=== PATIENT | male | born 1965 | race African-American/Black ===

== ENCOUNTER 2021-09-29 12:43 | Inpatient (IN) | payer OTHER, SELFPAY ==
[2021-09-29] MEDS ORDERED: Ondansetron ODT 4 MG TAB PO PRN (17:21)
[2021-09-29] MEDS ORDERED: HYDROcodone/Acetaminophen 5/325 mg Tablet PO PRN (17:21)
[2021-09-29] MEDS ORDERED: Morphine 4 MG/ML VIAL SLOW IVP PRN (17:45)
[2021-09-29] MEDS ORDERED: Acetaminophen 325 MG TAB PO PRN (17:45)
[2021-09-29] MEDS ORDERED: Ondansetron PF 4 MG/2 ML Vial IVP PRN (17:54)
[2021-09-29] MEDS ORDERED: Electrolyte Replacement Protocol 1 EACH FS SCH (18:15)
[2021-09-29 18:20] LABS: Magnesium 1.6 mg/dL (1.6-2.6)
[2021-09-29 18:23] LABS: INR-International Normal Ratio 1.1
[2021-09-29 18:40] LABS: Hep B Surf Ag Non-Reactive S/CO (NonReactive)
[2021-09-29 18:41] LABS: HBSAg Index 0.18 S/CO (0-0.99)
[2021-09-29 18:56] VITALS: BMI 31.2
[2021-09-29] MEDS ORDERED: hydrALAZINE 20 MG/ML VIAL SLOW IVP PRN (20:05)
[2021-09-29] MEDS: Sodium Chloride 0.9% 1,000 ML IV SCH (20:36)
[2021-09-29] MEDS ORDERED: Potassium Chloride 20 MEQ TAB PO SCH (21:00)
[2021-09-29] MEDS ORDERED: Magnesium 2 GM/50 ML 2 GM in Premix Bag 1 BAG IVPB SCH (21:00)
[2021-09-29] MEDS: metroNIDAZOLE 500 MG in Premix Bag 1 BAG IVPB SCH ×2 (23:13→23:21)
[2021-09-30] MEDS: Sodium Chloride 0.9% 1,000 ML IV SCH ×3 (04:53→23:40)
[2021-09-30 07:22] LABS: #Basophils 0.1 10x3/uL (0.0-0.2); #Eosinphils 0.2 10x3/uL (0.0-0.5); #Monocytes 0.9 10x3/uL (0.0-1.1); #Neutrophils 3.7 10x3/uL (1.5-8.4); %Basophils 0.7 % (0.0-2.0); %Eosinophils 3.6 % (0.0-6.0); %Lymphocytes 27.4 % (18.0-47.0); %Monocytes 12.7 % (0.0-10.0); %Neutrophils 55.2 % (40.0-75.0); Hemoglobin 10.2 g/dL (13.5-17.5); Mean Corpuscular Hemoglobin 34.6 pg (27.0-33.0); Mean Corpuscular Volume 101.7 fl (81.2-95.1); Mean Platelet Volume 11.5 fl (7.4-10.4); Platelet Count 154 10x3/uL (150-450); RBC Distribution Width 15.8 % (11.5-14.5); Red Blood Cell (RBC) Count 2.95 10x6/uL (4.32-5.72); White Blood Cell (WBC) Count 6.8 10x3/uL (3.5-10.5)
[2021-09-30 07:40] LABS: ALT (SGPT) 49 U/L (8-55); AST (SGOT) 139 U/L (5-34); Albumin 2.5 g/dL (3.5-5.0); Alkaline Phosphatase 384 U/L (40-110); Anion Gap 10 mmol/L (10-20); BUN (Urea Nitrogen) Less than 4 mg/dL (8.4-25.7); Bilirubin, Total 4.4 mg/dL (0.2-1.2); Calc. Creatinine Clearance 114 mL/min (70-130); Carbon Dioxide 25 mmol/L (22-29); Cardiac Risk 40.8 (Less than 4.5); Chloride 107 mmol/L (98-107); Cholesterol 449 mg/dl (< 200 Desired); Globulin 2.8 g/dL (2.4-3.5); Glucose 117 mg/dL (70-105); HDL Cholesterol 11 mg/dL (>60 Neg Risk); Iron 107 ug/dL (65-175); Iron Binding Capacity, Total 145 mcg/dL (261-462); LDL Cholesterol, Calculated 369 mg/dL; Potassium 3.7 mmol/L (3.5-5.1); Protein, Total 5.3 g/dL (6.0-8.3); Sodium 138 mmol/L (136-145); Triglycerides 347 mg/dL (Less than 150)
[2021-09-30 08:03] LABS: SARS-CoV-2 PCR by NAA Not Detected (NotDetected)
[2021-09-30 09:02] LABS: Ferritin 2494.86 ng/mL (22-322)
[2021-09-30 09:20] LABS: HBSAg Index 0.18 S/CO (0-0.99); Hep B Surf Ag NonReactive S/CO (NonReactive)
[2021-09-30 11:20] LABS: Thyroid Stimulating Hormone 1.886 uIU/mL (0.35-4.94)
[2021-09-30] MEDS: metroNIDAZOLE 500 MG in Premix Bag 1 BAG IVPB SCH ×2 (13:28→23:31)
[2021-09-30 13:32] LABS: HBCM Index 0.23 S/CO (0-0.79); Hep A IgM AB Non-Reactive (NonReactive); Hep A IgM S/CO 0.13 S/CO (0-0.79); Hep C IgG Ab Non-Reactive (NonReactive); Hep C Index 0.13 S/CO (0-0.79); Hepatitis B Core IgM Abs Non-Reactive (NonReactive)
[2021-09-30 14:04] LABS: HBCM Index 0.24 S/CO (0-0.79); Hep C IgG Ab Non-Reactive (NonReactive); Hep C Index 0.14 S/CO (0-0.79); Hepatitis B Core IgM Abs Non-Reactive (NonReactive)
[2021-09-30 14:07] LABS: ANA Symphony (Qualitative) Negative (Negative); ANA Symphony (Quantitative) 0.5 Ratio (< 0.7 Negative); EliA Vaculitis New Method **** NEW METHOD ****; Mitochondrial Ab 1.3 U/mL (<4 Negative); dsDNA IgG Antibody 1.5 IU/mL (<10 Negative)
[2021-10-01 04:37] LABS: #Basophils 0.1 10x3/uL (0.0-0.2); #Eosinphils 0.2 10x3/uL (0.0-0.5); #Monocytes 0.9 10x3/uL (0.0-1.1); #Neutrophils 2.9 10x3/uL (1.5-8.4); %Eosinophils 3.3 % (0.0-6.0); %Lymphocytes 31.7 % (18.0-47.0); %Monocytes 14.8 % (0.0-10.0); %Neutrophils 48.2 % (40.0-75.0); Hemoglobin 9.8 g/dL (13.5-17.5); Mean Corpuscular Hemoglobin 34.6 pg (27.0-33.0); Mean Corpuscular Volume 104.9 fl (81.2-95.1); Mean Platelet Volume 11.3 fl (7.4-10.4); Platelet Count 139 10x3/uL (150-450); RBC Distribution Width 15.9 % (11.5-14.5); Red Blood Cell (RBC) Count 2.83 10x6/uL (4.32-5.72); White Blood Cell (WBC) Count 6.1 10x3/uL (3.5-10.5)
[2021-10-01 04:40] LABS: ALT (SGPT) 41 U/L (8-55); AST (SGOT) 118 U/L (5-34); Albumin 2.4 g/dL (3.5-5.0); Alkaline Phosphatase 394 U/L (40-110); Anion Gap 10 mmol/L (10-20); BUN (Urea Nitrogen) Less than 4 mg/dL (8.4-25.7); Bilirubin, Total 3.5 mg/dL (0.2-1.2); Calc. Creatinine Clearance 117 mL/min (70-130); Calcium 7.8 mg/dL (7.8-10.44); Carbon Dioxide 27 mmol/L (22-29); Chloride 106 mmol/L (98-107); Globulin 2.8 g/dL (2.4-3.5); Glucose 117 mg/dL (70-105); Potassium 3.9 mmol/L (3.5-5.1); Protein, Total 5.2 g/dL (6.0-8.3); Sodium 139 mmol/L (136-145)
[2021-10-01] MEDS: metroNIDAZOLE 500 MG in Premix Bag 1 BAG IVPB SCH ×2 (05:42→14:40)
[2021-10-01] MEDS: Sodium Chloride 0.9% 1,000 ML IV SCH (09:20)
[2021-10-01 16:08] VITALS: BP 137/63; TEMP 96.7
== END 2021-10-01 19:05 | disposition home or self-care (01) | DRG 392 ==
LOC: CSHTELE 12:43
PROVIDERS: ADMIT Family Medicine; ATTEND Internal Medicine
DX: K57.92 Diverticulitis of intestine, part unspecified, without perforation or abscess without bleeding (principal); I10 Essential (primary) hypertension; I73.9 Peripheral vascular disease, unspecified; F41.9 Anxiety disorder, unspecified; R05.3 Chronic cough; K76.0 Fatty (change of) liver, not elsewhere classified; D64.9 Anemia, unspecified; R07.89 Other chest pain; N28.1 Cyst of kidney, acquired; Z20.822 Contact with and (suspected) exposure to COVID-19; R74.8 Abnormal levels of other serum enzymes; Z87.891 Personal history of nicotine dependence
CPT/HCPCS: 36415; 74183; 76705; 80053; 80061; 80074; 81256; 82390; 82607; 82728; 82746; 83516; 83540; 83550; 83735; 84443; 85025; 85610; 86038; 86225; 86705; 86803; 87340; J0744; J3475; J7050; U0003; U0005